=== PATIENT | male | born 1970 | race Caucasian/White ===

== ENCOUNTER 2021-06-06 11:37 | Emergency (ER) | payer OTHER ==
[~2021-06-06 11:37] MED LIST: FLOMAX 0.4 MG0.4 MG PO; TRAMADOL HCL50 MG PO
[2021-06-06 12:26] LABS: BASOPHIL 1.2 % (0-2); EOSINOPHIL 1.8 % (0-5); HCT 41.7 % (42.0-52.0); HGB 13.1 g/dl (13.2-18.0); LYMPHOCYTE 41.3 % (15-48); MCH 29.3 pg (25.0-31.0); MCHC 31.4 g/dL (32.0-36.0); MCV 93.3 fL (78.0-100.0); MONOCYTE 7.1 % (0-12); MPV 9.1 fL (6.0-9.5); NEUTROPHIL 48.3 % (41-80); NRBC 0; PLT 388 K/uL (150-400); RBC 4.47 M/uL (4.70-6.00); RDW 12.8 % (11.5-14.0); WBC 6.6 K/uL (4.0-10.5)
[2021-06-06 12:27] LABS: INR 0.95 (0.9-1.2); PROTHROMBIN TIME 12.1 SECONDS (11.8-13.4); PTT 29.9 SECONDS (24.4-34.7)
[2021-06-06 12:44] LABS: ALBUMIN 4.3 g/dL (3.4-5.0); BILIRUBIN - TOTAL 0.4 mg/dL (0.2-1.0); CREATININE 1.06 mg/dL (0.67-1.17); GLOBULIN (CALCULATION) 3.5 g/dL; POTASSIUM 4.3 mmol/L (3.5-5.1); TOTAL PROTEIN 7.8 g/dL (6.4-8.2)
[2021-06-06] MEDS ORDERED: ANTIVERT25 MG PO (14:21)
== END 2021-06-06 14:35 | disposition home or self-care (01) ==
LOC: FER 11:37
PROVIDERS: Emergency Medicine
DX: I10 Essential (primary) hypertension (principal); R42 Dizziness and giddiness; Z87.891 Personal history of nicotine dependence
CPT/HCPCS: 36415; 70450; 71045; 80053; 84484; 85025; 85610; 85730; 93005